=== PATIENT | male | born 1935 ===

== ENCOUNTER 2018-09-06 09:00 | Observation (INO) | payer MEDICARE ==
[2018-09-06 09:06] VITALS: BMI 28.4
[2018-09-06] MEDS ORDERED: Sodium Chloride 0.9% 1,000 ML IV STA (09:13)
[2018-09-06 09:40] LABS: VENOUS BLOOD GAS BASE EXCESS 3.9 mmol/L (0.0-2.0); VENOUS BLOOD GAS PCO2 42 mmHg (40-60); VENOUS BLOOD GAS PO2 28 mm/Hg (30-55); VENOUS BLOOD PH 7.44 (7.32-7.43)
--- NOTE | 2018-09-06 09:41 | ED PDOC ---
HPI: Abdomen Time Seen by Provider: 09/06/18 09:07 Chief Complaint (Nursing): Abdominal Pain Chief Complaint (Provider): Abdominal Pain History Per: Patient History/Exam Limitations: no limitations Onset/Duration Of Symptoms: Days (last night) Location Of Pain/Discomfort: LLQ Quality Of Discomfort: Sharp Associated Symptoms: Fever. denies: Nausea, Vomiting, Diarrhea, Chest Pain Additional Complaint(s): 82 year old male with PMHx of hypercholesterolemia and HTN presents to the ED for an evaluation of sharp left-sided abdominal pain associated with fever since last night. Also complains of runny nose and cough. Otherwise, patient denies nausea, vomiting, diarrhea, blood in stool, urinary symptoms, chest pain or s hortness of breath. PMD: Dr. Dumont Past Medical History Reviewed: Historical Data, Nursing Documentation, Vital Signs Vital Signs: Last Vital Signs Temp 100.9 F H 09/06/18 09:04 Pulse 121 H 09/06/18 09:04 Resp 18 09/06/18 09:04 BP 144/81 09/06/18 09:04 Pulse Ox 95 09/06/18 09:04 - Medical History PMH: HTN, Hypercholesterolemia - Family History Family History: States: Unknown Family Hx - Social History Current smoker - smoking cessation education provided: No Alcohol: None Drugs: Denies - Allergies Allergies/Adverse Reactions: Allergies Allergy/AdvReac Type Severity Reaction Status Date / Time Unobtainable Allergy Verified 09/06/18 09:07 Review of Systems ROS Statement: Except As Marked, All Systems Reviewed And Found Negative Constitutional: Positive for: Fever ENT: Positive for: Nose Discharge Cardiovascular: Negative for: Chest Pain Respiratory: Positive for: Cough. Negative for: Shortness of Breath Gastrointestinal: Positive for: Abdominal Pain (left-sideed). Negative for: Nausea, Vomiting, Diarrhea Physical Exam - Reviewed Nursing Documentation Reviewed: Yes Vital Signs Reviewed: Yes - Physical Exam Appears: Positive for: Non-toxic, No Acute Distress Head Exam: Positive for: ATRAUMATIC, NORMAL INSPECTION, NORMOCEPHALIC Skin: Positive for: Normal Color, Warm, DRY Eye Exam: Positive for: EOMI, Normal appearance, PERRL ENT: Positive for: Normal ENT Inspection Neck: Positive for: Normal, Painless ROM Cardiovascular/Chest: Positive for: Regular Rate, Rhythm Respiratory: Positive for: CNT, Normal Breath Sounds Gastrointestinal/Abdominal: Positive for: Normal Exam, Soft, Tenderness (LLQ and left flank), Guarding Back: Positive for: Normal Inspection. Negative for: L CVA Tenderness, R CVA Tenderness Extremity: Positive for: Normal ROM. Negative for: Tenderness, Pedal Edema, Deformity Neurologic/Psych: Positive for: Alert, Oriented (x3). Negative for: Mo tor/Sensory Deficits - Laboratory Results Result Diagrams: 09/06/18 09:00 09/06/18 09:00 - ECG O2 Sat by Pulse Oximetry: 95 (RA) Pulse Ox Interpretation: Normal Medical Decision Making Medical Decision Making: Time: 912 Impression: Abdominal pain. Will obtain CBC, urine, CT to r/o diverticulitis vs colitis. Will r/o flu and pneumonia with CXR Plan: VBG shock panel CT ABD Pelvis IV contrast CT CMP Chest two views (PA/LAT) CBC w/ differential Bentyl 10mg Normal saline 100 mls/hr Blood culture Influenza A B Reevaluation 10:18 Patients serology presents negative for flu a/b Scribe Attestation: Documented by Serena Lucero, acting as a scribe for Paul Ocasio MD Provider Scribe Attestation: All medical record entries made by the Scribe were at my direction and personally dictated by me. I have reviewed the chart and agree that the record accurately reflects my personal performance of the history, physical exam, medical decision making, and the department course for this patient. I have also personally directed, reviewed, and agree with the discharge instructions and disposition. CT reveals diverticulitis. Meets criteria for sepsis. Lactate 1.6. Normotensive. Will tx with IV vanco, Zosyn and admit. Disposition - Clinical Impression Clinical Impression: Diverticulitis - Patient ED Disposition Is Patient to be Admitted: Yes - Disposition Disposition Time: 11:21 Condition: FAIR Forms: [email or web address] ([place]) - Pt Status Changed To: Hospital Disposition Of: Inpatient - Admit Certification Admit to Inpatient:: After my assessment, the patient will require hospitalization for at least two midnights. This is because of the severity of symptoms shown, intensity of services needed, and/or the medical risk in this patient being treated as an outpatient. - POA Present On Arrival: None
[2018-09-06 09:44] LABS: BASO % 0.6 % (0.0-2.0); EOS # 0.3 K/uL (0.0-0.7); EOS % 4.1 % (0.0-4.0); HEMOGLOBIN 14.9 g/dL (12.0-18.0); LYMPH # 0.6 K/uL (1.0-4.3); LYMPH % 8.3 % (20.0-40.0); MEAN CELL VOLUME 93.9 fl (80.0-94.0); MEAN CORPUSCULAR HEMOGLOBIN 31.5 pg (27.0-31.0); MEAN CORPUSCULAR HGB CONC 33.6 g/dL (33.0-37.0); MEAN PLATELET VOLUME 7.5 fl (7.2-11.7); MONO # 0.6 K/uL (0.0-0.8); MONO % 8.5 % (0.0-10.0); NEUT # 5.6 K/uL (1.8-7.0); NEUT % 78.5 % (50.0-75.0); PLATELET COUNT 170 K/uL (130-400); RBC 4.73 Mil/uL (4.40-5.90); RED CELL DISTRIBUTION WIDTH 13.3 % (11.5-14.5); WHITE BLOOD COUNT 7.2 K/uL (4.8-10.8)
[2018-09-06 09:55] LABS: ALB/GLOB RATIO 1.4 (1.0-2.1); ALBUMIN 4.9 g/dL (3.5-5.0); ALT/SGPT 28 U/L (21-72); AST/SGOT 28 U/L (17-59); BLOOD UREA NITROGEN 20 mg/dl (9-20); CALCIUM 9.3 mg/dL (8.4-10.2); GFR NON-AFRICAN AMERICAN > 60
[2018-09-06] MEDS ORDERED: Iohexol 300 100 ML IJ ONE (10:38)
[2018-09-06] MEDS ORDERED: Sodium Chloride 0.9% 50 ML IV ONE (10:39)
--- NOTE | 2018-09-06 11:00 | RAD ---
Date of service: 09/06/2018 HISTORY: cough COMPARISON: No prior. TECHNIQUE: Chest PA and lateral FINDINGS: LUNGS: Hyperinflation, manifestations of COPD. No active pulmonary disease. PLEURA: No significant pleural effusion identified. No pneumothorax apparent. CARDIOVASCULAR: Atherosclerotic calcifications identified primarily aortic arch. No radiographic findings to suggest acute or significant cardiovascular disease. OSSEOUS STRUCTURES: No significant abnormalities. VISUALIZED UPPER ABDOMEN: Normal. OTHER FINDINGS: None. IMPRESSION: No active disease.
[2018-09-06] MEDS ORDERED: Piperacillin/Tazobact 3.375 GM in Sodium Chloride 0.9% 100 ML IVPB STA (11:19)
--- NOTE | 2018-09-06 11:21 | CT ---
Date of service: 09/06/2018 PROCEDURE: CT Abdomen and Pelvis with contrast HISTORY: Abd pain COMPARISON: None. TECHNIQUE: Intravenous contrast dose: Radiation dose: Total exam DLP = <inf_radiation_dlp> mGy-cm. This CT exam was performed using one or more of the following dose reduction techniques: Automated exposure control, adjustment of the mA and/or kV according to patient size, and/or use of iterative reconstruction technique. FINDINGS: LOWER THORAX: Unremarkable. LIVER: Unremarkable. No gross lesion or ductal dilatation. GALLBLADDER AND BILE DUCTS: Unremarkable. PANCREAS: Unremarkable. No gross lesion or ductal dilatation. SPLEEN: Unremarkable spleen with respect to size and contrast-enhancing characteristics. Unremarkable splenic artery and vein. Incidental finding(s): Well-circumscribed mass inferior lateral aspect of the spleen 13 mm. Mean Hounsfield units on this contrast-enhanced study 36.7. This does not represent a simple cyst. ADRENALS: Unremarkable. No mass. KIDNEYS AND URETERS: Unremarkable. No hydronephrosis. No solid mass. Incidental finding(s): Simple cyst right kidney 2.5 cm. VASCULATURE: Unremarkable. No aortic aneurysm. Atherosclerotic calcification and mural plaque present. Findings are seen throughout the aorta extends into iliac vessels. BOWEL: Diverticulosis. Inflammatory changes distal sigmoid colon affecting a short segment near the junction with the sigmoid likely mild, acute and uncomplicated diverticulitis. APPENDIX: A normal appendix is visualized in it's entirety. PERITONEUM: Unremarkable. No free fluid. No free air. LYMPH NODES: Unremarkable. No enlarged lymph nodes. BLADDER: Unremarkable. REPRODUCTIVE: Postoperative changes related to prior prostatectomy. BONES: No acute fracture. Grade 1 anterolisthesis L5-S1. Associated pars defects at this level. Severe degenerative changes left hip. Virtual absence of the normal joint space. Subchondral sclerosis and cyst formation. No evidence of protrusio. OTHER FINDINGS: None. IMPRESSION: Short segment diverticulitis, acute at the junction of the distal descending colon and sigmoid. Underlying severe diverticulosis. Additional benign and/or incidental findings described above. Communication of results: I provided verbal summary of the findings at 11:17. I discussed this directly with the attending physician Dr. Ocasio.
[2018-09-06 11:26] LABS: BANDS 1 % (0-2); EOSINOPHIL 4 % (0-7); LYMPHOCYTE 8 % (20-50); MONOCYTE 10 % (0-10); NEUTROPHIL 77 % (42-75); PLATELET ESTIMATE NORMAL (NORMAL); TOTAL CELLS COUNTED 100
[2018-09-06] MEDS ORDERED: Piperacillin/Tazobact 3.375 gm Inj IVPB ONE (11:27)
[2018-09-06] MEDS ORDERED: Vancomycin 1 g Inj ONE (11:27)
[2018-09-06 11:40] LABS: URINE BILIRUBIN NEGATIVE (NEGATIVE); URINE BLOOD NEGATIVE (NEGATIVE); URINE CLARITY CLEAR (Clear); URINE COLOR YELLOW (YELLOW); URINE GLUCOSE (UA) NEG (NEGATIVE); URINE LEUKOCYTE ESTERASE NEG Leu/uL (Negative); URINE PROTEIN NEGATIVE (NEGATIVE); URINE UROBILINOGEN 0.2-1.0 mg/dL (0.2-1.0)
--- NOTE | 2018-09-06 12:09 | CP.PCM.HP ---
History of Present Illness - History of Present Illness History of Present Illness: 82 year old male PMH HTN, HLD, CAD stents 3 years ago presents to the ED with a 12 hour history of severe, constant, sharp LLQ pain, nonradiating, worsening with movement. Patient states pain woke him overnight and was associated with subjective fever and chills. In ED patient was tachycardic 112 BP 144/82, febrile 100.9, lactic acid 1.9, no WBC but bands 1, normal renal function noted. CTAP showed diverticulitis at distal descending colon and sigmoid. Pt given Zosyn, Vanco x1 and NS 1L. Patient to be admitted for acute diverticulitis, NPO, continue Zosyn, advance diet with pain resolution. HD stable at this time, and in no acute distress. ROS: per HPI all other systems reviewed and negative PMSH: HTN, HLD, CAD stents 3 years ago, prostate surgery FH: denies SH: former smoker 8 years, social drinker NKDA Present on Admission - Present on Admission Any Indicators Present on Admission: No Past Patient History - Past Social History Alcohol: None Drugs: Denies - CARDIAC Hx Hypercholesterolemia: Yes Hx Hypertension: Yes - PSYCHIATRIC Hx Substance Use: No - SURGICAL HISTORY Hx Surgeries: Yes Hx Coronary Stent: Yes - ANESTHESIA Hx Anesthesia: Yes Hx Anesthesia Reactions: No Hx Malignant Hyperthermia: No Meds Allergies/Adverse Reactions: Allergies Allergy/AdvReac Type Severity Reaction Status Date / Time No Known Allergies Allergy Verified 09/06/18 11:43 Physical Exam - Constitutional Appears: Non-toxic, No Acute Distress - Head Exam Head Exam: ATRAUMATIC, NORMOCEPHALIC - Eye Exam Eye Exam: EOMI, Normal appearance, PERRL - ENT Exam ENT Exam: Mucous Membranes Moist, Normal Oropharynx - Respiratory Exam Respiratory Exam: Clear to Auscultation Bilateral, NORMAL BREATHING PATTERN - Cardiovascular Exam Cardiovascular Exam: RRR, +S1, +S2 - GI/Abdominal Exam GI & Abdominal Exam: Normal Bowel Sounds, Soft, Tenderness. absent: Guarding, Rebound, Rigid - Extremities Exam Extremities exam: Positive for: normal capillary refill, pedal pulses present - Back Exam Back exam: absent: CVA tenderness (L), CVA tenderness (R) - Neurological Exam Neurological exam: Alert, Oriented x3, Reflexes Normal - Psychiatric Exam Psychiatric exam: Normal Affect, Normal Mood - Skin Skin Exam: Dry, Warm Results - Vital Signs Recent Vital Signs: Last Vital Signs Temp 100.9 F H 09/06/18 11:06 Pulse 121 H 09/06/18 09:04 Resp 18 09/06/18 09:04 BP 144/81 09/06/18 09:04 Pulse Ox 95 09/06/18 11:23 - Labs Result Diagrams: 09/06/18 09:00 09/06/18 09:00 Labs: Laboratory Results - last 24 hr 09/06/18 09/06/18 09/06/18 09:00 09:00 09:00 WBC 7.2 RBC 4.73 Hgb 14.9 Hct 44.4 MCV 93.9 MCH 31.5 H MCHC 33.6 RDW 13.3 Plt Count 170 MPV 7.5 Neut % (Auto) 78.5 H Lymph % (Auto) 8.3 L [place] % (Auto) 8.5 Eos % (Auto) 4.1 H Baso % (Auto) 0.6 Neut # (Auto) 5.6 Lymph # (Auto) 0.6 L [place] # (Auto) 0.6 Eos # (Auto) 0.3 Baso # (Auto) 0.0 Neutrophils % (Manual) 77 H Band Neutrophils % 1 Lymphocytes % (Manual) 8 L Monocytes % (Manual) 10 Eosinophils % (Manual) 4 Platelet Estimate Normal RBC Morphology Normal pO2 VBG pH VBG pCO2 VBG HCO3 VBG Total CO2 VBG O2 Sat (Calc) VBG Base Excess VBG Potassium Glucose Lactate FiO2 Sodium 138 Potassium 3.8 Chloride 94 L Carbon Dioxide 26 Anion Gap 22 H BUN 20 Creatinine 0.8 Est GFR ( Amer) > 60 Est GFR (Non-Af Amer) > 60 Random Glucose 138 H Calcium 9.3 Total Bilirubin 0.6 AST 28 ALT 28 Alkaline Phosphatase 92 Total Protein 8.4 H Albumin 4.9 Globulin 3.4 Albumin/Globulin Ratio 1.4 Venous Blood Potassium Urine Color Urine Clarity Urine pH Ur Specific [place] Urine Protein Urine Glucose (UA) Urine Ketones Urine Blood Urine Nitrate Urine Bilirubin Urine Urobilinogen Ur Leukocyte Esterase Urine RBC (Auto) Urine Microscopic WBC Influenza Typ A,B (EIA) Negative for flu a/b 09/06/18 09/06/18 09:34 11:05 WBC RBC Hgb Hct MCV MCH MCHC RDW Plt Count MPV Neut % (Auto) Lymph % (Auto) [place] % (Auto) Eos % (Auto) Baso % (Auto) Neut # (Auto) Lymph # (Auto) [place] # (Auto) Eos # (Auto) Baso # (Auto) Neutrophils % (Manual) Band Neutrophils % Lymphocytes % (Manual) Monocytes % (Manual) Eosinophils % (Manual) Platelet Estimate RBC Morphology pO2 28 L VBG pH 7.44 H VBG pCO2 42 VBG HCO3 26.8 VBG Total CO2 29.8 H VBG O2 Sat (Calc) 61.7 VBG Base Excess 3.9 H VBG Potassium 3.6 Glucose 141 H Lactate 1.6 FiO2 21.0 Sodium 133.0 Potassium Chloride 99.0 Carbon Dioxide Anion Gap BUN Creatinine Est GFR ( Amer) Est GFR (Non-Af Amer) Random Glucose Calcium Total Bilirubin AST ALT Alkaline Phosphatase Total Protein Albumin Globulin Albumin/Globulin Ratio Venous Blood Potassium 3.6 Urine Color Yellow Urine Clarity Clear Urine pH 8.0 Ur Specific [place] 1.014 Urine Protein Negative Urine Glucose (UA) Neg Urine Ketones Negative Urine Blood Negative Urine Nitrate Negative Urine Bilirubin Negative Urine Urobilinogen 0.2-1.0 Ur Leukocyte Esterase Neg Urine RBC (Auto) 2 Urine Microscopic WBC < 1 Influenza Typ A,B (EIA) Assessment & Plan - Assessment and Plan (Free Text) Plan: 82 year old male PMH HTN, HLD, CAD stents 3 years ago presents to the ED with a 12 hour history of severe, constant, sharp LLQ pain, nonradiating, worsening with movement. Patient states pain woke him overnight and was associated with subjective fever and chills. In ED patient was tachycardic 112 BP 144/82, febr ile 100.9, lactic acid 1.9, no WBC but bands 1, normal renal function noted. CTAP showed diverticulitis at distal descending colon and sigmoid. Pt given Zosyn, Vanco x1 and NS 1L. Patient to be admitted for acute diverticulitis, NPO, continue Zosyn, advance diet with pain resolution. HD stable at this time, and in no acute distress. Acute Diverticulitis - continue IV ABX Zosyn day 1 - NPO except meds - maintenance fluids - advance diet according to pain resolution HTN HLD CAD - cont Bystolic, Simvastatin, Lovaza and Plavix DVT ppx Lovenox FULL CODE
[2018-09-06] MEDS: Potassium Ch 20mEq in D5-1/2NS 1,000 ML IV SCH ×2 (12:43→22:07)
[2018-09-06] MEDS ORDERED: Piperacillin/Tazobact 3.375 GM in Sodium Chloride 0.9% 100 ML IVPB SCH (16:00)
[2018-09-06] MEDS: Piperacillin/Tazobact 3.375 GM in Sodium Chloride 0.9% 100 ML IVPB SCH (20:38)
--- NOTE | 2018-09-06 20:38 | CARD ---
APPROVED REPORT Date of service: 09/06/2018 EKG Measurement Heart [id number] <Conclusion> Sinus tachycardia Nonspecific ST abnormality Abnormal ECG
[2018-09-07] MEDS: Piperacillin/Tazobact 3.375 GM in Sodium Chloride 0.9% 100 ML IVPB SCH ×3 (02:31→20:08)
[2018-09-07 06:12] LABS: HEMOGLOBIN 13.1 g/dL (12.0-18.0); MEAN CELL VOLUME 92.8 fl (80.0-94.0); MEAN CORPUSCULAR HEMOGLOBIN 31.7 pg (27.0-31.0); MEAN CORPUSCULAR HGB CONC 34.1 g/dL (33.0-37.0); RBC 4.13 Mil/uL (4.40-5.90); RED CELL DISTRIBUTION WIDTH 13.2 % (11.5-14.5); WHITE BLOOD COUNT 8.5 K/uL (4.8-10.8)
[2018-09-07 06:32] LABS: BLOOD UREA NITROGEN 16 mg/dl (9-20); CALCIUM 8.4 mg/dL (8.4-10.2); GFR NON-AFRICAN AMERICAN > 60
[2018-09-07] MEDS ORDERED: Potassium Chloride 20 mEq ER Tab PO ONE (07:06)
[2018-09-07] MEDS: Potassium Ch 20mEq in D5-1/2NS 1,000 ML IV SCH (07:33)
[2018-09-07] MEDS: Potassium Chloride 20 mEq 100 ML IVPB SCH ×2 (09:00→20:09)
[2018-09-07] MEDS: Enoxaparin 40 mg Syringe SC SCH (09:37)
[2018-09-07] MEDS: Omega-3-Acid Ethyl Esters 1 GM Cap PO SCH (09:43)
--- NOTE | 2018-09-07 10:04 | CP.PCM.PN ---
<Anju Omalleyekah - Last Filed: 09/07/18 12:58> Subjective - Date & Time of Evaluation Date of Evaluation: 09/07/18 Time of Evaluation: 09:00 - Subjective Subjective: Voyce: [id number] Pt is an 82 yo M PMH HTN, HLD, CAD stents 3 yr ago presented with LLQ pain admitted due to diverticulitis and sepsis. Pt reports he still has diffuse abdominal pain improved since admission 12/21 in severity, currently NPO however wants to advance diet. Denies fevers, chills, N/V/D/C, dysuria. Objective - Vital Signs/Intake and Output Vital Signs (last 24 hours): Temp Pulse Resp BP Pulse Ox 98.4 F 70 20 105/45 L 97 09/07/18 08:00 09/07/18 08:00 09/07/18 08:00 09/07/18 08:00 09/07/18 08:00 - Medications Medications: Current Medications Atorvastatin Calcium (Lipitor) 20 mg PO HS [facility] Last Admin: 09/06/18 22:03 Dose: 20 mg Clopidogrel Bisulfate (Plavix) 75 mg PO DAILY [facility] Last Admin: 09/07/18 09:43 Dose: Not Given Enoxaparin Sodium (Lovenox) 40 mg SC DAILY [facility]; Protocol Last Admin: 09/07/18 09:37 Dose: 40 mg Potassium Chloride/Dextrose/Sod Cl (Potassium Chl 20 Meq In D5-1/2ns) 1,000 mls @ 125 mls/hr IV .Q8H [facility] Stop: 09/07/18 12:05 Last Admin: 09/07/18 07:33 Dose: Not Given Piperacillin Sod/Tazobactam (Sod 3.375 gm/ Sodium Chloride) 100 mls @ 100 mls/hr IVPB 0200,0800,1400,2000 [facility]; Protocol Last Admin: 09/07/18 08:35 Dose: 100 mls/hr Potassium Chloride (Potassium Chloride 20 Meq/100 Ml) 100 mls @ 50 mls/hr IVPB Q2 [facility] Stop: 09/07/18 11:59 Last Admin: 09/07/18 09:00 Dose: 50 mls/hr Ketorolac Tromethamine (Toradol) 30 mg IVP Q6 PRN PRN Reason: Pain, severe (8-10) Metoprolol Tartrate (Lopressor) 25 mg PO BID [facility] Last Admin: 09/07/18 09:43 Dose: Not Given Lvbni-8-Wsvl Ethyl Esters (Lovaza) 2 gm PO DAILY [facility] Last Admin: 09/07/18 09:43 Dose: Not Given Ondansetron HCl (Zofran Inj) 4 mg IVP Q6 PRN PRN Reason: Nausea/Vomiting - Labs Labs: 09/07/18 05:25 09/07/18 05:25 - Constitutional Appears: Non-toxic, No Acute Distress - Head Exam Head Exam: NORMAL INSPECTION, NORMOCEPHALIC - Eye Exam Eye Exam: EOMI - ENT Exam ENT Exam: Mucous Membranes Moist - Respiratory Exam Respiratory Exam: Clear to Ausculation Bilateral, NORMAL BREATHING PATTERN. absent: Rales, Rhonchi, Wheezes - Cardiovascular Exam Cardiovascular Exam: RRR, +S1, +S2 - GI/Abdominal Exam GI & Abdominal Exam: Guarding, Soft, Tenderness (Diffuse, worse LLQ), Hyperactive Bowel Sounds. absent: Rebound - Extremities Exam Extremities Exam: Normal Inspection - Neurological Exam Neurological Exam: Awake, Oriented x3 Assessment and Plan - Assessment and Plan (Free Text) Assessment: Assessment: Pt is an 82 yo M PMH HTN, HLD, CAD stents 3 yr ago presented with LLQ pain admitted due to diverticulitis and sepsis. Plan: Acute Diverticulitis continue IV ABX Zosyn day 2 Blood Cx no growth @ 24hr-prelim- F/u final Toradol and ZofranPRN Pain improving since admission-Advance to clear liquids continue to monitor, advance diet as tolerated Hypokalemia acute K 3.1 repleated f/u BMP in AM HTN chronic, controlled c/w Lopressor HLD chronic c/w Atorvastatin CAD cont Lopressor, Atorvastatin, Lovaza and Plavix Diet Clear liquids DVT ppx Lovenox 40mg SC Code status Full code <Jana Ng - Last Filed: 09/07/18 14:26> Objective - Vital Signs/Intake and Output Vital Signs (last 24 hours): Temp Pulse Resp BP Pulse Ox 98.4 F 70 20 105/45 L 97 09/07/18 08:00 09/07/18 08:00 09/07/18 08:00 09/07/18 08:00 09/07/18 08:00 - Medications Medications: Current Medications Atorvastatin Calcium (Lipitor) 20 mg PO HS [facility] Last Admin: 09/06/18 22:03 Dose: 20 mg Clopidogrel Bisulfate (Plavix) 75 mg PO DAILY [facility] Last Admin: 09/07/18 09:43 Dose: Not Given Enoxaparin Sodium (Lovenox) 40 mg SC DAILY [facility]; Protocol Last Admin: 09/07/18 09:37 Dose: 40 mg Piperacillin Sod/Tazobactam (Sod 3.375 gm/ Sodium Chloride) 100 mls @ 100 mls/hr IVPB 0200,0800,1400,2000 [facility]; Protocol Last Admin: 09/07/18 08:35 Dose: 100 mls/hr Ketorolac Tromethamine (Toradol) 30 mg IVP Q6 PRN PRN Reason: Pain, severe (8-10) Metoprolol Tartrate (Lopressor) 25 mg PO BID [facility] Last Admin: 09/07/18 09:43 Dose: Not Given Lqhpm-5-Hzdb Ethyl Esters (Lovaza) 2 gm PO DAILY [facility] Last Admin: 09/07/18 09:43 Dose: Not Given Ondansetron HCl (Zofran Inj) 4 mg IVP Q6 PRN PRN Reason: Nausea/Vomiting - Labs Labs: 09/07/18 05:25 09/07/18 05:25 Attending/Attestation - Attestation I have personally seen and examined this patient.: Yes I have fully participated in the care of the patient.: Yes I have reviewed all pertinent clinical information, including history, physical exam and plan: Yes Notes (Text): 09/07/18 14:25 agree with findings and plan as above. Check Mg and replete as necessary as well.
[2018-09-08] MEDS: Piperacillin/Tazobact 3.375 GM in Sodium Chloride 0.9% 100 ML IVPB SCH ×3 (01:32→13:12)
[2018-09-08 05:58] LABS: BLOOD UREA NITROGEN 11 mg/dl (9-20); CALCIUM 8.1 mg/dL (8.4-10.2); GFR NON-AFRICAN AMERICAN > 60
[2018-09-08] MEDS ORDERED: Potassium Chloride 20 mEq ER Tab PO ONE (06:39)
--- NOTE | 2018-09-08 08:48 | RAD ---
Date of service: 09/08/2018 HISTORY: r/o pneumonia COMPARISON: Chest radiographs 09/06/2018. FINDINGS: LUNGS: No active pulmonary disease. PLEURA: No significant pleural effusion identified, no pneumothorax apparent. CARDIOVASCULAR: Calcific atherosclerotic changes are seen related to the thoracic aorta. Stable cardiac silhouette. No pulmonary vascular congestion evident. OSSEOUS STRUCTURES: No significant abnormalities. VISUALIZED UPPER ABDOMEN: Normal. OTHER FINDINGS: None. IMPRESSION: No interval acute cardiopulmonary disease appreciated.
[2018-09-08] MEDS: Omega-3-Acid Ethyl Esters 1 GM Cap PO SCH (09:35)
[2018-09-08] MEDS: Enoxaparin 40 mg Syringe SC SCH (09:36)
--- NOTE | 2018-09-08 12:43 | CP.PCM.DIS ---
Provider - Provider Date of Admission: 09/06/18 11:23 Attending physician: Jana Ng DO Primary care physician: Dr Alessandra Dumont Consults: None Time Spent in preparation of Discharge (in minutes): 20 Hospital Course - Lab Results Lab Results: Micro Results 09/06/18 09:50 Blood-Venous Blood Culture - Preliminary NO GROWTH AFTER 48 HOURS 09/06/18 09:00 Blood-Venous Blood Culture - Preliminary NO GROWTH AFTER 48 HOURS Most Recent Lab Values WBC 8.5 K/uL (4.8-10.8) 09/07/18 05:25 RBC 4.13 Mil/uL (4.40-5.90) L 09/07/18 05:25 Hgb 13.1 g/dL (12.0-18.0) 09/07/18 05:25 Hct 38.3 % (35.0-51.0) 09/07/18 05:25 MCV 92.8 fl (80.0-94.0) 09/07/18 05:25 MCH 31.7 pg (27.0-31.0) H 09/07/18 05:25 MCHC 34.1 g/dL (33.0-37.0) 09/07/18 05:25 RDW 13.2 % (11.5-14.5) 09/07/18 05:25 Plt Count 149 K/uL (130-400) 09/07/18 05:25 MPV 7.5 fl (7.2-11.7) 09/06/18 09:00 Neut % (Auto) 78.5 % (50.0-75.0) H 09/06/18 09:00 Lymph % (Auto) 8.3 % (20.0-40.0) L 09/06/18 09:00 Reagan % (Auto) 8.5 % (0.0-10.0) 09/06/18 09:00 Eos % (Auto) 4.1 % (0.0-4.0) H 09/06/18 09:00 Baso % (Auto) 0.6 % (0.0-2.0) 09/06/18 09:00 Neut # (Auto) 5.6 K/uL (1.8-7.0) 09/06/18 09:00 Lymph # (Auto) 0.6 K/uL (1.0-4.3) L 09/06/18 09:00 Reagan # (Auto) 0.6 K/uL (0.0-0.8) 09/06/18 09:00 Eos # (Auto) 0.3 K/uL (0.0-0.7) 09/06/18 09:00 Baso # (Auto) 0.0 K/uL (0.0-0.2) 09/06/18 09:00 Neutrophils % (Manual) 77 % (42-75) H 09/06/18 09:00 Band Neutrophils % 1 % (0-2) 09/06/18 09:00 Lymphocytes % (Manual) 8 % (20-50) L 09/06/18 09:00 Monocytes % (Manual) 10 % (0-10) 09/06/18 09:00 Eosinophils % (Manual) 4 % (0-7) 09/06/18 09:00 Platelet Estimate Normal (NORMAL) 09/06/18 09:00 RBC Morphology Normal (NORMAL) 09/06/18 09:00 pO2 28 mm/Hg (30-55) L 09/06/18 09:34 VBG pH 7.44 (7.32-7.43) H 09/06/18 09:34 VBG pCO2 42 mmHg (40-60) 09/06/18 09:34 VBG HCO3 26.8 mmol/L 09/06/18 09:34 VBG Total CO2 29.8 mmol/L (22-28) H 09/06/18 09:34 VBG O2 Sat (Calc) 61.7 % (40-65) 09/06/18 09:34 VBG Base Excess 3.9 mmol/L (0.0-2.0) H 09/06/18 09:34 VBG Potassium 3.6 mmol/L (3.6-5.2) 09/06/18 09:34 Sodium 133.0 mmol/L (132-148) 09/06/18 09:34 Chloride 99.0 mmol/L (98-107) 09/06/18 09:34 Glucose 141 mg/dL (75-110) H 09/06/18 09:34 Lactate 1.6 mmol/L (0.7-2.1) 09/06/18 09:34 FiO2 21.0 % 09/06/18 09:34 Sodium 136 mmol/l (132-148) 09/08/18 05:10 Potassium 3.3 MMOL/L (3.6-5.0) L 09/08/18 05:10 Chloride 102 mmol/L (98-107) 09/08/18 05:10 Carbon Dioxide 24 mmol/L (22-30) 09/08/18 05:10 Anion Gap 13 (10-20) 09/08/18 05:10 BUN 11 mg/dl (9-20) 09/08/18 05:10 Creatinine 0.7 mg/dl (0.8-1.5) L 09/08/18 05:10 Est GFR ( Amer) > 60 09/08/18 05:10 Est GFR (Non-Af Amer) > 60 09/08/18 05:10 Random Glucose 98 mg/dL (75-110) 09/08/18 05:10 Calcium 8.1 mg/dL (8.4-10.2) L 09/08/18 05:10 Magnesium 2.0 MG/DL (1.6-2.3) 09/08/18 05:10 Total Bilirubin 0.6 mg/dl (0.2-1.3) 09/06/18 09:00 AST 28 U/L (17-59) 09/06/18 09:00 ALT 28 U/L (21-72) 09/06/18 09:00 Alkaline Phosphatase 92 U/L (38-126) 09/06/18 09:00 Total Protein 8.4 G/DL (6.3-8.2) H 09/06/18 09:00 Albumin 4.9 g/dL (3.5-5.0) 09/06/18 09:00 Globulin 3.4 gm/dL (2.2-3.9) 09/06/18 09:00 Albumin/Globulin Ratio 1.4 (1.0-2.1) 09/06/18 09:00 Venous Blood Potassium 3.6 mmol/L (3.6-5.2) 09/06/18 09:34 Urine Color Yellow (YELLOW) 09/06/18 11:05 Urine Clarity Clear (Clear) 09/06/18 11:05 Urine pH 8.0 (5.0-8.0) 09/06/18 11:05 Ur Specific [place] 1.014 (1.003-1.030) 09/06/18 11:05 Urine Protein Negative mg/dL (NEGATIVE) 09/06/18 11:05 Urine Glucose (UA) Neg mg/dL (NEGATIVE) 09/06/18 11:05 Urine Ketones Negative mg/dL (NEGATIVE) 09/06/18 11:05 Urine Blood Negative (NEGATIVE) 09/06/18 11:05 Urine Nitrate Negative (NEGATIVE) 09/06/18 11:05 Urine Bilirubin Negative (NEGATIVE) 09/06/18 11:05 Urine Urobilinogen 0.2-1.0 mg/dL (0.2-1.0) 09/06/18 11:05 Ur Leukocyte Esterase Neg [place]/uL (Negative) 09/06/18 11:05 Urine RBC (Auto) 2 /hpf (0-3) 09/06/18 11:05 Urine Microscopic WBC < 1 /hpf (0-5) 09/06/18 11:05 Influenza Typ A,B (EIA) Negative for flu a/b (NEGATIVE) 09/06/18 09:00 - Hospital Course Hospital Course: 82 year old male PMH HTN, HLD, CAD stents 3 years ago presents to the ED with a 12 hour history of severe, constant, sharp LLQ pain, nonradiating, worsening with movement. Patient states pain woke him overnight and was associated with subjective fever and chills. In ED patient was tachycardic 112 BP 144/82, febrile 100.9, lactic acid 1.9, no WBC but bands 1, normal renal function noted. CTAP showed diverticulitis at distal descending colon and sigmoid. Patient was admitted , kept NPO, started on IVF and Zosyn IV Patient clinically showed improvemnet Started on Liquid and soft diet and tolerated Yves;l discharge patient home on PO Cipro and Flagyl for 7 more days PO , soft low fiber diet for 1 week Advised patient to increase Fiber intake after the first week and follow up with his PMD and GI. He had colonoscopy 2 years ago and was normal and as per patient this was the first time he had diverticulitis.No need for surgety follow up Dx Acute diverticulitis Hypertension Dyslipidemia CAD Hypokalemia- replaced Discharge Exam - Head Exam Head Exam: ATRAUMATIC, NORMAL INSPECTION, NORMOCEPHALIC - Eye Exam Eye Exam: EOMI, Normal appearance, PERRL Pupil Exam: NORMAL ACCOMODATION - ENT Exam ENT Exam: Mucous Membranes Moist, Normal Exam - Neck Exam Neck exam: Full Rom, Normal Inspection - Respiratory Exam Respiratory Exam: Clear to PA & Lateral, NORMAL BREATHING PATTERN. absent: Rales, Rhonchi, Wheezes, Respiratory Distress - Cardiovascular Exam Cardiovascular Exam: REGULAR RHYTHM, RRR, +S1, +S2. absent: JVD - GI/Abdominal Exam GI & Abdominal Exam: Normal Bowel Sounds, Soft. absent: Distended, Guarding, Rebound, Tenderness - Rectal Exam Rectal Exam: Deferred - Extremities Exam Extremities exam: normal capillary refill, normal inspection, pedal pulses present - Back Exam Back exam: NORMAL INSPECTION - Neurological Exam Neurological exam: Alert, CN II-XII Intact, Oriented x3, Reflexes Normal - Psychiatric Exam Psychiatric exam: Normal Affect, Normal Mood - Skin Skin Exam: Dry, Intact, Normal Color, Warm Discharge Plan - Discharge Medications Prescriptions: Ciprofloxacin HCl [Cipro] 500 mg PO BID #14 tablet Metronidazole [Flagyl] 500 mg PO TID #21 tab - Follow Up Plan Condition: STABLE Disposition: HOME/ ROUTINE Patient education suggested?: Yes Instructions: Diverticulitis (DC) Additional Instructions: Follow up with PMD Dr. Bakari Dumont
[2018-09-08 16:09] VITALS: PULSE 62; O2SAT 94
[2018-09-08 20:06] VITALS: BP 136/75; RESP 18; TEMP 97.9
== END 2018-09-08 20:45 | disposition home or self-care (01) ==
LOC: H.ER 09:00 → INTOOBSV 11:23 → H.ERHOLD 11:23 → H.TEL 18:01
PROVIDERS: ADMIT Student in an Organized Health Care Education/Training Program; ATTEND Student in an Organized Health Care Education/Training Program
DX: K57.92 Diverticulitis of intestine, part unspecified, without perforation or abscess without bleeding (principal); I10 Essential (primary) hypertension; E78.00 Pure hypercholesterolemia, unspecified; E78.5 Hyperlipidemia, unspecified; I25.10 Atherosclerotic heart disease of native coronary artery without angina pectoris; Z95.5 Presence of coronary angioplasty implant and graft; Z87.891 Personal history of nicotine dependence; E87.6 Hypokalemia
CPT/HCPCS: 36415; 71045; 71046; 74177; 80048; 80053; 81003; 82803; 83735; 85025; 85027; 87040; 87804; 93005; 96365; 96367; 99285; G0378; J1650; J2543; J3480; J7030; Q9967